=== PATIENT | male | born 1945 | race Caucasian/White ===

== ENCOUNTER → 2021-01-15 | Outpatient (CLI) | payer OTHER | LOC: CT 09:47 | DX: C43.22 Malignant melanoma of left ear and external auricular canal (principal) | CPT/HCPCS: 70470; 70491; Q9967 ==

== ENCOUNTER 2021-03-13 18:24 | Emergency (ER) | payer OTHER ==
[2021-03-13] MEDS ORDERED: CEPHALEXIN500 MG PO (19:05)
== END 2021-03-13 19:17 | disposition home or self-care (01) ==
LOC: ER1 18:24
DX: T85.79XA Infection and inflammatory reaction due to other internal prosthetic devices, implants and grafts, initial encounter (principal)
CPT/HCPCS: 99283

== ENCOUNTER → 2021-08-01 | Day surgery (SDC) | payer OTHER ==
[~2021-08-01] VITALS: Ht 170.2 cm; Wt 70.3 kg
[~2021-08-01] MED LIST: CEPHALEXIN500 MG PO; FLUOCINOLON118.28 ML EARLF
== END | disposition home or self-care (01) ==
LOC: OR 05:37
DX: C43.9 Malignant melanoma of skin, unspecified (principal); C79.9 Secondary malignant neoplasm of unspecified site; Z20.822 Contact with and (suspected) exposure to COVID-19
CPT/HCPCS: 71045; 77001; C1769; C1788; J1642; J2704; J3010; J7040; J7120